=== PATIENT | male | born 1965 | race Caucasian/White ===

== ENCOUNTER 2016-08-04 12:55 | Emergency (ER) | payer MEDICAID, OTHER ==
[~2016-08-04] VITALS: Wt 76.5 kg
== END 2016-08-04 18:00 | disposition left against medical advice (07) ==
LOC: FTE 12:55
DX: Z53.21 Procedure and treatment not carried out due to patient leaving prior to being seen by health care provider (principal)

== ENCOUNTER 2016-08-12 14:05 | Emergency (ER) | payer OTHER, MEDICAID ==
[~2016-08-12] VITALS: Ht 172.7 cm; Wt 78.0 kg
[2016-08-12 14:12] VITALS: Ht 172.7 cm; Wt 78.0 kg
--- NOTE | 2016-08-12 16:55 | ERD ---
ER Documentation Chief Complaint Date/Time DATE: 08/12/16 TIME: 16:45 Chief Complaint BLURRY VISION RT EYE X 2 WEEKS HPI This 51-year-old male presents for evaluation for treatment for syphilis diagnosed approximately 3 weeks ago by PCP. Patient has a history of HIV with a T-cell count in the 500s. Patient has additional history of approximately 2 week history of visual loss in the right eye. He has seen an drafter civil (cad) 3 times diagnosed with an unspecified retinal condition and referral to a retinal specialist is pending. Patient denies any fevers, headaches, weakness, neurologic deficits. Patient by report had a negative syphilis test 9 weeks ago. Patient admits he did not tell drafter civil (cad) that he was recently diagnosed with syphilis or has a diagnosis HIV. Patient had a history of PCP pneumonia in the 90s but has been adequately treated without age-related infection for the last 20 years. ROS All systems reviewed and are negative except as per history of present illness. Allergies Allergies: Coded Allergies: No Known Allergy (Unverified , 08/12/16) PMhx/Soc History of Surgery: Yes (HAND SURGERY) Hx Respiratory Disorders: Yes (ASTHMA, PNA) Hx Miscellaneous Medical Probl: Yes (AIDS) Hx Alcohol Use: Yes Hx Substance Use: Yes Hx Tobacco Use: Yes Smoking Status: Unknown if ever smoked Physical Exam Vitals Vital Signs Date Time Temp Pulse Resp B/P Pulse Ox O2 Delivery O2 Flow Rate FiO2 08/12/16 14:12 98.1 92 18 135/75 96 Physical Exam Const: [] Alert, [id number], pleasant. Head: Atraumatic Eyes: Right pupil is dilated per recent vasodilator drops. Unable to appreciate specific findings on limited funduscopic exam. ENT: Normal External Ears, Nose and Mouth. Neck: Full range of motion..~ No meningismus. Resp: Clear to auscultation bilaterally Cardio: Regular rate and rhythm, no murmurs Abd: Soft, non tender, non distended. Normal bowel sounds Skin: No petechiae or rashes Back: No midline or flank tenderness Ext: No cyanosis, or edema Neur: Awake and alert Psych: Normal Mood and Affect Results 24 hrs Current Medications Medications (Trade) Dose Ordered Sig/Winter Route PRN Reason Start Time Stop Time Status Last Admin Dose Admin Penicillin G Benzathine (Bicillin La) 2,400,000 units ONCE ONCE IM 08/12/16 17:00 2/24/17 17:01 DC Procedures/MDM Call was placed to Dr. Sharma, patient's treating drafter civil (cad) who is followed him closely and recently has an outpatient. he Stated that syphilis 1 of many potential diagnoses of the patient's eye condition. He recently submitted the referral and is pending retinal specialist for more specific diagnosis. A call was placed to Dr. Cloud, patient's PCP was unavailable but a message was left for nursing blood donor recruiter supervisor regarding patient's care. Case was discussed with Dr. FITCH medical dir of the ED. Patient presents for treatment of recently diagnosed syphilis with a negative test 9 weeks ago. We have no confirmation that eye complaint is related to recent syphilis diagnosis which by history may be less than 2 months duration. Patient denies any history of any painless ulcers or rashes. Patient would require transfer to higher level care with ophthalmology services but we have no confirmation of ocular syphilis which would be ideal for justification of emergent transfer. 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 Patient was advised to follow-up with primary doctor the next 1 to days for expedition of retinal specialist referral for confirmation of potential syphilis complications which will require 10-14 days of IV antibiotics with ophthalmology inpatient services. We do not have enough information to justify transfer today without confirmatory diagnosis. Patient agrees with the plan and will follow up with his primary doctor. Patient does not display any other signs or symptoms to suggest neurosyphilis or sepsis. The patient was stable with no new complaints during the ER course. Clinically, there is no current evidence to suggest meningitis, sepsis, acute abdomen, pneumonia, acute coronary syndrome, pulmonary embolism, or any other emergent condition appearing to require further evaluation or hospitalization. The patient should certainly return for any new or worsening symptoms per the aftercare instructions. They should otherwise follow-up with her primary care doctor for reevaluation this week. Departure Diagnosis: Primary Impression: Syphilis Additional Impression: Eye problem Condition: Stable Patient Instructions: Syphilis Additional Instructions: Recommend treatment for primary or secondary syphilis until confirmation of possible eye condition related to syphilis, which would require admission to hospital with ophthalmology services and up to 2 weeks of IV antibiotics.. Important to see retinal specialist as referred. See primary doctor for expedition of referral. Recheck otherwise for new or worsening symptoms. ADALBERTO DAVENPORT MD Aug 12, 2016 16:55
[2016-08-12] MEDS ORDERED: PENICILLIN G BENZ 2.4 MIL UNIT SYG IM ONE (17:00)
== END 2016-08-12 18:40 | disposition home or self-care (01) ==
LOC: FTE 14:05
DX: A53.9 Syphilis, unspecified (principal); H57.8 Other specified disorders of eye and adnexa; J45.901 Unspecified asthma with (acute) exacerbation
CPT/HCPCS: 96372; 99284; J0561

== ENCOUNTER 2019-04-14 08:16 | Inpatient (IN) | payer OTHER ==
[~2019-04-14] VITALS: Ht 172.7 cm; Wt 76.4 kg
[~2019-04-14 08:16] MED LIST: ALBU18HF INHALATION; AMBR10TA3 PO; BICT1TAB PO; CIPR500T4 PO; FURO40TA4 PO; LISI-313 PO; SULF1TAB31 PO; TADA20TA PO; TIOT18CA INHALATION
[2019-04-14] MEDS ORDERED: ACETAMINOPHEN 500 MG TAB PO STA (08:36)
[2019-04-14] MEDS ORDERED: CEFEPIME 2GM/50 ML (PMX) 50 ML IVPB STA (08:36)
[2019-04-14] MEDS ORDERED: PIPER-TAZO 3.375 GM IV (PMX) 100 ML IVPB STA (08:51)
[2019-04-14] MEDS ORDERED: CLINDAMYCIN 900 MG (PMX) 50 ML IVPB STA (08:51)
[2019-04-14] MEDS ORDERED: VANCOMYCIN 1 GM (PMX) 250 ML IVPB ONE (09:00)
[2019-04-14] MEDS ORDERED: IBUPROFEN 800 MG TAB PO ONE (09:00)
[2019-04-14] MEDS: SODIUM CHLORIDE 0.9% 1L BAG IV* STA ×2 (09:45→12:24)
[2019-04-14] MEDS ORDERED: ONDANSETRON 4 MG INJ IV PRN (10:00)
[2019-04-14] MEDS ORDERED: ACETAMINOPHEN 325 MG TAB PO PRN (10:00)
[2019-04-14] MEDS ORDERED: NACL 0.9% 3 ML SYG IV SCH (10:30)
[2019-04-14] MEDS ORDERED: VANCOMYCIN IV PER PHARMACY XX SCH (10:30)
[2019-04-14] MEDS ORDERED: morphine 2 MG INJ IV PRN (10:30)
[2019-04-14] MEDS ORDERED: VANCOMYCIN 1.5 GM/NS 250 ML 250 ML IVPB ONE (12:30)
[2019-04-14] MEDS ORDERED: SOD CHLORIDE 0.9% 1,000 ML IV SCH (12:30)
[2019-04-14] MEDS: CEFEPIME 1GM/50 ML (PMX) 50 ML IVPB SCH ×2 (14:43→21:26)
[2019-04-14] MEDS ORDERED: SOD CHLORIDE 0.9% 1,000 ML IV STA (15:41)
[2019-04-14 18:49] VITALS: BP 84/50; PULSE 81; RESP 20
[2019-04-14 19:05] VITALS: Ht 172.7 cm; Wt 76.4 kg
[2019-04-14 20:00] VITALS: BP 87/53; PULSE 83; RESP 18
[2019-04-14] MEDS: ACETAMINOPHEN 325 MG TAB PO PRN (22:08)
[2019-04-14 23:41] VITALS: BP 98/56; PULSE 103; RESP 18
[2019-04-15] MEDS: VANCOMYCIN 1 GM 250 ML IVPB SCH ×2 (00:30→13:07)
[2019-04-15 03:34] VITALS: BP 100/62; PULSE 100; RESP 18
[2019-04-15] MEDS: HYDROCODONE/APAP (5/325) TAB PO PRN ×2 (05:21→23:42)
[2019-04-15 07:28] VITALS: BP 89/53; PULSE 82; RESP 19
[2019-04-15] MEDS: ENOXAPARIN 40 MG/0.4 ML SYG SC SCH (09:00)
[2019-04-15] MEDS: LISINOPRIL 5 MG TAB PO SCH (09:00)
[2019-04-15] MEDS: FUROSEMIDE 40 MG TAB PO SCH (09:00)
[2019-04-15] MEDS: CEFEPIME 1GM/50 ML (PMX) 50 ML IVPB SCH ×2 (09:19→21:04)
[2019-04-15 11:21] VITALS: BP 90/52; PULSE 84; RESP 18
[2019-04-15 15:28] VITALS: BP 103/59; PULSE 59; RESP 18
[2019-04-15] MEDS ORDERED: SOD CHLORIDE 0.9% 250 ML IV ONE (15:30)
[2019-04-15] MEDS: TIOTROPIUM 18 MCG CAPSULE INHA DEV INH SCH (16:55)
[2019-04-15 20:00] VITALS: BP 111/56; PULSE 88; RESP 19
[2019-04-15 23:25] VITALS: BP 98/62; PULSE 82; RESP 18
[2019-04-16] MEDS: VANCOMYCIN 1 GM 250 ML IVPB SCH (02:24)
[2019-04-16 03:44] VITALS: BP 98/55; PULSE 86; RESP 19
[2019-04-16 07:16] VITALS: BP 96/56; PULSE 88; RESP 20
[2019-04-16] MEDS: LISINOPRIL 5 MG TAB PO SCH (08:42)
[2019-04-16] MEDS: FUROSEMIDE 40 MG TAB PO SCH (08:43)
[2019-04-16] MEDS: CEFEPIME 1GM/50 ML (PMX) 50 ML IVPB SCH ×2 (08:47→20:56)
[2019-04-16] MEDS: ENOXAPARIN 40 MG/0.4 ML SYG SC SCH (08:55)
[2019-04-16] MEDS: TIOTROPIUM 18 MCG CAPSULE INHA DEV INH SCH (10:10)
[2019-04-16] MEDS: HYDROCODONE/APAP (5/325) TAB PO PRN ×2 (10:10→23:34)
[2019-04-16] MEDS: VANCOMYCIN 750 MG (PMX) 250 ML IVPB SCH ×2 (10:11→17:13)
[2019-04-16 11:11] VITALS: BP 87/48; PULSE 78; RESP 20
[2019-04-16] MEDS: AMBRISENTAN 10 MG PO SCH (14:59)
[2019-04-16] MEDS: BIKTARVY PO SCH (14:59)
[2019-04-16 15:38] VITALS: BP 88/54; PULSE 75; RESP 20
[2019-04-16 18:27] VITALS: BP 97/55; PULSE 83
[2019-04-16 19:38] VITALS: BP 101/55; PULSE 94; RESP 18
[2019-04-17] VITALS (7 sets, daily range): BP systolic 84–106; BP diastolic 45–67; PULSE 69–95; RESP 18–20
[2019-04-17] MEDS: VANCOMYCIN 750 MG (PMX) 250 ML IVPB SCH ×3 (02:40→17:50)
[2019-04-17] MEDS: LISINOPRIL 5 MG TAB PO SCH (09:00)
[2019-04-17] MEDS: AMBRISENTAN 10 MG PO SCH (09:02)
[2019-04-17] MEDS: BIKTARVY PO SCH (09:02)
[2019-04-17] MEDS: CEFEPIME 1GM/50 ML (PMX) 50 ML IVPB SCH ×2 (09:02→20:44)
[2019-04-17] MEDS: FUROSEMIDE 40 MG TAB PO SCH (09:02)
[2019-04-17] MEDS: ACETAMINOPHEN 325 MG TAB PO PRN (09:19)
[2019-04-17] MEDS: ENOXAPARIN 40 MG/0.4 ML SYG SC SCH (09:22)
[2019-04-17] MEDS: TIOTROPIUM 18 MCG CAPSULE INHA DEV INH SCH (11:51)
[2019-04-17] MEDS: HYDROCODONE/APAP (5/325) TAB PO PRN (20:44)
[2019-04-18] MEDS: VANCOMYCIN 750 MG (PMX) 250 ML IVPB SCH ×3 (01:45→18:09)
[2019-04-18 07:09] VITALS: BP 102/59; PULSE 82; RESP 22
[2019-04-18] MEDS: LISINOPRIL 5 MG TAB PO SCH (09:00)
[2019-04-18] MEDS: TIOTROPIUM 18 MCG CAPSULE INHA DEV INH SCH (09:14)
[2019-04-18] MEDS: CEFEPIME 1GM/50 ML (PMX) 50 ML IVPB SCH ×2 (09:15→20:48)
[2019-04-18] MEDS: BIKTARVY PO SCH (09:20)
[2019-04-18] MEDS: FUROSEMIDE 40 MG TAB PO SCH (09:21)
[2019-04-18] MEDS: AMBRISENTAN 10 MG PO SCH (09:21)
[2019-04-18] MEDS: ENOXAPARIN 40 MG/0.4 ML SYG SC SCH (10:00)
[2019-04-18 12:08] VITALS: BP 99/60; PULSE 83; RESP 20
[2019-04-18] MEDS: HYDROCODONE/APAP (5/325) TAB PO PRN (15:00)
[2019-04-18] MEDS ORDERED: COSYNTROPIN 0.25 MG INJ IV ONE (15:30)
[2019-04-18 16:35] VITALS: BP 105/65; PULSE 83; RESP 22
[2019-04-18] MEDS ORDERED: ALTEPLASE (CATHFLO) 2 MG INJ CATHETER PRN (18:30)
[2019-04-18 20:05] VITALS: BP 103/61; PULSE 81; RESP 21
[2019-04-18 23:20] VITALS: BP 97/59; PULSE 83; RESP 22
[2019-04-19] MEDS: VANCOMYCIN 750 MG (PMX) 250 ML IVPB SCH ×2 (02:24→10:52)
[2019-04-19] MEDS: HYDROCODONE/APAP (5/325) TAB PO PRN (02:30)
[2019-04-19 04:50] VITALS: BP 101/55; PULSE 85; RESP 21
[2019-04-19 07:25] VITALS: BP 100/62; PULSE 71; RESP 20
[2019-04-19] MEDS: CEFEPIME 1GM/50 ML (PMX) 50 ML IVPB SCH (08:43)
[2019-04-19] MEDS: AMBRISENTAN 10 MG PO SCH (08:43)
[2019-04-19] MEDS: BIKTARVY PO SCH (08:43)
[2019-04-19] MEDS: FUROSEMIDE 40 MG TAB PO SCH (08:43)
[2019-04-19] MEDS: TIOTROPIUM 18 MCG CAPSULE INHA DEV INH SCH (08:44)
[2019-04-19] MEDS: LISINOPRIL 5 MG TAB PO SCH (08:44)
[2019-04-19] MEDS: ENOXAPARIN 40 MG/0.4 ML SYG SC SCH (08:52)
[2019-04-19 11:31] VITALS: BP 104/63; PULSE 76; RESP 20
[2019-04-19] MEDS ORDERED: INDOMETHACIN 25 MG PO SCH (13:00)
[2019-04-19 14:56] VITALS: BP 110/63; PULSE 89; RESP 20
== END 2019-04-19 15:42 | disposition home or self-care (01) | DRG 975 ==
LOC: E/R 08:16 → 6WM 09:43 → SUATTDRO 10:13 → EDBEDREQ 15:52 → EDBEDREQSVC 15:52 → 6WM 18:29
PROVIDERS: ADMIT Internal Medicine; ATTEND Internal Medicine
DX: A41.9 Sepsis, unspecified organism (principal); L03.116 Cellulitis of left lower limb; B20 Human immunodeficiency virus [HIV] disease; J18.9 Pneumonia, unspecified organism; I95.9 Hypotension, unspecified; I27.20 Pulmonary hypertension, unspecified; J45.909 Unspecified asthma, uncomplicated; F17.200 Nicotine dependence, unspecified, uncomplicated; R51 Headache
CPT/HCPCS: 36573; 70450; 71045; 80048; 80053; 80202; 81001; 82533; 83036; 83605; 83735; 84484; 85025; 85610; 85730; 86360; 86701; 86703; 87081; 87086; 87400; 87536; 93005; 93971; 95819; J0692; J0833; J1650; J2270; J2543; J3370; J7030; J7040